=== PATIENT | male | born 1955 | race Caucasian/White ===

== ENCOUNTER → 2019-02-18 09:24 | Outpatient (CLI) | payer MEDICARE ==
[2019-02-19 11:00] LABS: HEP B CORE AB TOTAL Negative (Negative)
== END | disposition home or self-care (01) ==
LOC: D.LAB 01-18 09:15
PROVIDERS: ATTEND Internal Medicine Gastroenterology
DX: K63.3 Ulcer of intestine (principal); K92.2 Gastrointestinal hemorrhage, unspecified; R19.7 Diarrhea, unspecified; R10.11 Right upper quadrant pain; R10.32 Left lower quadrant pain

== ENCOUNTER → 2019-03-13 10:41 | Outpatient (CLI) | payer MEDICARE ==
[2019-03-14 12:13] LABS: HEPATITIS C ANTIBODY <0.1 S/CO RAT (0.0-0.9)
== END | disposition home or self-care (01) ==
LOC: D.LAB 10:41
PROVIDERS: ATTEND Internal Medicine Gastroenterology
DX: K63.89 Other specified diseases of intestine (principal); R10.32 Left lower quadrant pain; K63.3 Ulcer of intestine

== ENCOUNTER → 2019-03-27 07:46 | Outpatient (CLI) | payer MEDICARE ==
--- NOTE | ~2019-03-27 | ST ---
PATIENT:LACIE [place] MEDICAL RECORD: [id number] SEX: M LOCATION:[facility] ORDER #: ADMISSION DATE: 03/27/19 AGE OF PATIENT: 63 REFERRING PHYSICIAN: INTERPRETING PHYSICIAN: MATTEO CAMPOS MD DATE OF SERVICE: 03/27/2019 PROCEDURE: Nuclear stress test. INDICATIONS: Angina, abnormal ECG, dysrhythmia - atrial flutter. He was exercised on standard Lexiscan protocol with 33 mCi of sestamibi injected at peak stress, 11 mCi used previously for rest images. FINDINGS: Gated SPECT reveals a mildly dilated cardiomyopathy, ejection fraction in the 49% range. Decreased thickening and brightening throughout the inferior segments. SPECT imaging: Cardiolite was used as a myocardial perfusion agent. There was a mixed perfusion defect inferiorly and apically, partially fixed, partially reversible. This includes the basal, mid, apical, inferior segments as well as the apex itself, it as well extends into the basal and mid lateral segments. OVERALL IMPRESSION: This is an abnormal nuclear stress test, mixed fusion defect inferiorly and laterally as well as apically, partially fixed, partially reversible with a dilated LV ejection fraction mildly depressed, but preserved at 49%. This suggests hemodynamically significant coronary artery disease, previous myocardial infarction, ongoing ischemic burden, and a large amount of myocardium. We will proceed with coronary angiography as a followup study. TRANSINT:[id number] Voice Confirmation ID: [id number] DOCUMENT ID: [id number] MATTEO CAMPOS MD CC: REJI MARY Deep [id number] DICTATION DATE: 03/27/19 1612 OPTICIANRY TEACHER: 03/28/19 1014 DEP CLI 03/27/19 [place] [id number] [place] [id number]
--- NOTE | 2019-04-02 13:26 | EC ---
PATIENT:LACIE [place] DATE OF SERVICE: 03/27/19 SEX: M MEDICAL RECORD: [id number] DATE OF : [birth year] LOCATION:[facility] AGE OF PATIENT: 63 ADMISSION DATE: 03/27/19 REFERRING PHYSICIAN: INTERPRETING PHYSICIAN: AYO HOPE MD ECHOCARDIOGRAM REPORT ECHO CHARGES 4 ECHO COMPLETE Date: 03/27/19 CLINICAL DIAGNOSIS: ANGINA ECHOCARDIOGRAPHIC MEASUREMENTS (adult normal given) AC root (d.<3.7cm) 3.8 cm LV Septum d (<1.2 cm> 1.5 cm Valve Excursion 2.0 cm LV Septum (systole) 1.7 cm Left Atria (s.<4.0cm> 4.2 cm LVPW d(<1.2cm) 1.4 cm RV (d.<2.3cm) 5.0 cm LVPW (sytole) 1.8 cm LV diastole(<5.6CM) 5.7 cm MV E-F(>70mm/sec) cm LV systole 4.1 cm LVOT Diameter 2.0 cm MV exc.(>10mm) 1.8 cm Est.ejection fraction (50-75%) % DOPPLER: LVIT cm/sec A 48.0 cm/sec E 87.0 cm/sec LA cm/sec RVSP 32 mmHg LVOT 104 cm/sec AOP1/2T m/s Asc. Ao 142 cm/sec RVOT 86 cm/sec RA cm/sec PA 101 cm/sec AV Gradient Peak 8.08 mmHg AV Mean 4.48 mmHg AV Area 2.2 cm MV Gradient Peak 5.18 mmHg MV Mean 1.83 mmHg MV Area cm COMMENTS: Senior Hardware Engineer: 2 CARO HODGE Management Development Specialist: 3 Dr. Lao TAPE# PACS Pericardial Effusion N DATE OF SERVICE: Adequate 2-D echo, color-flow and spectral Doppler, and M-mode. LVH is present. LV internal dimensions are normal. Wall motion is normal. EF is greater than or equal to 55%. Aortic valve is tricuspid. No evidence of stenosis by Doppler interrogation. Left atrium mildly dilated at 4.2 cm. Mitral valve shows no prolapse. Trace MR. Right-sided chambers are grossly normal. Trace TR. ECHOCARDIOGRAM REPORT [id number] LACIE [place] TRANSINT:[id number] Voice Confirmation ID: [id number] DOCUMENT ID: [id number] AYO HOPE MD at 1326 CC: [id number] DICTATION DATE: 03/28/19 1304 TAX SERVICES MANAGER: 03/28/19 1424 DEP CLI 03/27/19 [facility] [address] [place] [address]
== END | disposition home or self-care (01) ==
LOC: D.HCCARDIO 07:46
PROVIDERS: ATTEND Internal Medicine Interventional Cardiology
DX: I20.9 Angina pectoris, unspecified (principal)

== ENCOUNTER 2019-04-18 11:09 | Outpatient (CLI) | payer MEDICARE ==
[~2019-04-18] VITALS: Ht 185.4 cm; Wt 109.1 kg
--- NOTE | ~2019-04-18 | HEMODYNAMI ---
PATIENT:LACIE [place] MEDICAL RECORD: [id number] : 51 LOCATION:[facility] ADMISSION DATE: 04/18/19 Generatedon:04/18/201914:41 Patient name: LACIE ROSAL[place] Patient #: [id number] SSN: : 1955 Date of study: 04/18/2019 Page: Of Hemodynamic Procedure Report Patient Data Patient Demographics Procedure consent was obtained First Name: LACIE Gender: Male Last Name: BOBBY : 1955 Patient #: [id number] Age: 63 year(s) Race: Unknown Additional ID: [id number] Contact details [address]: [address] [place] [address] State: [place] City: [place] Zip code: [address] Past Medical History Allergies: No known allergies Admission Admission Data Admission Date: 04/18/2019 Admission Time: 11:09 Height (in.): 73 BSA: 2.33 (m2) Height (cm.): 185.42 BMI: 31.7 (kg/m2) Weight (lbs.): 240.31 Weight (kg.): 109 Lab Results Lab Result Date: 04/18/2019 Lab Result Time: 0:00 Biochemistry Name Units Result Min Max BUN mg/dl 15 --(--*-)-- 7 18 Creatinine mg/dl 0.8 --(-*--)-- 0.6 1.3 CBC Name Units Result Min Max Hematocrit % 42.9 --(*---)-- 42 54 Hemoglobin g/dl 14.1 --(*---)-- 13.5 17.5 Procedure Procedure Types Cath Procedure Diagnostic Procedure C [facility] w/Coronaries Sedation Charges Moderate Sedation up to 15 minutes PCI Procedure Coronary Stent Coronary Stent Initial Procedure Description Procedure Date Procedure Date: 04/18/2019 Procedure Start Time: 14:05 Procedure End Time: 14:40 Procedure Staff Name Function Tj Carias MD Performing Physician Jose Pathak RT Scrub Nina Villagran RN Nurse Maya Perez RT Monitor Procedure Data Cath Procedure Fluoroscopy Diagnostic fluoroscopy Total fluoroscopy Time: 8.3 time: 8.3 min min Diagnostic fluoroscopy Total fluoroscopy dose: dose: 1744 mGy 1744 mGy Contrast Material Contrast Material Type Amount (ml) Isovue 300 154 Entry Location Entry Primary Successful Side Size Upsize Upsize Entry Closure Succes sful Closure Location (Fr) 1 (Fr) 2 (Fr) Remarks Device Remarks Radial Right 6 Fr artery Short Femoral Right 6 Fr Exoseal artery Short Estimated blood loss: 10 ml Diagnostic catheters Device Type Used For End Catheter Placement DIAGNOSTIC [place] 110cm 5 Procedure Fr catheter ([id number]) DIAGNOSTIC AR MOD 5Fr Procedure Catheter ([id number]) DIAGNOSTIC AR MOD 5Fr Procedure Catheter ([id number]) Procedure Complications No complications Procedure Medications Medication Administration Route Dosage 0.9% NaCl I.V. 100 ml/hr Oxygen etCO2 Nasal cannula 2 l/min Lidocaine 2% added to field 20 Heparin Flush Bag added to field 2 bags (1000units/500ml NS) Radial Cocktail added to field 1 syringe (Verapamil 2mg/Nitro 400mcg/Heparin 1500units) Versed I.V. 2 mg Fentanyl I.V. 50 mcg Fentanyl I.V. 50 mcg Heparin Bolus I.V. 5000 units Integrilin (Bolus I.V. 9.5 ml 2mg/ml) Plavix P.O. 600 mg Hemodynamics Rest BSA: 2.33 (m2) HGB: 14.1 (g/dl) O2 Consumption: Estimated: 258.57 (ml/min) O2 Co nsumption indexed: Estimated:110.97 (ml/min/m) Heart Rate: 55 (bpm) Pressure Samples Time Site Value (mmHg) Purpose Heart Use Rate(bpm) 14:10 LV 117/17,20 Snapshot 82 14:10 AO 145/58(79) Pullback 82 14:10 LV 125/17,21 Pullback 82 Gradients Valve Time Site 1 Site 2 Mean SEP/DFP Peak To Heart Use (mmHg) (sec/min) Peak Rate (mmHg) (bpm) Aortic 14:10 LV AO 0 82 125/17,21 145/58(79) Calculations Valve P-P Mean Valve Index Valve Source Name Gradient Area Flow (cm2) Aortic 0 0 Snapshots Pre Cath Intra NCS Post Cath Vital Signs Time Heart Resp SPO2 etCO2 NIBP (mmHg) Rhythm Pain Sedation Rate (ipm) (%) (mmHg) Status Level (bpm) 13:51:18 71 16 96 27.8 145/80(117) A-Flutter 0 (11) 10(A) , No pain 13:55:40 86 18 98 38.4 141/86(117) A-Flutter 0 (11) 10(A) , No pain 13:59:57 85 15 98 46.6 142/94(134) A-Flutter 0 (11) 10(A) , No pain 14:04:12 80 15 98 48.9 143/98(113) A-Flutter 0 (11) 10(A) , No pain 14:08:30 67 13 98 48.9 132/87(106) A-Flutter 0 (11) 9(A) , No pain 14:12:42 84 13 97 49.6 136/92(108) A-Flutter 0 (11) 9(A) , No pain 14:16:58 77 13 98 45.9 145/84(113) A-Flutter 0 (11) 9(A) , No pain 14:21:14 84 15 97 48.8 142/92(113) A-Flutter 0 (11) 9(A) , No pain 14:25:33 84 15 96 45.2 137/86(104) A-Flutter 0 (11) 9(A) , No pain 14:29:47 76 17 98 52.6 145/92(126) A-Flutter 0 (11) 10(A) , No pain 14:34:00 78 16 91 45.9 147/94(114) A-Flutter 0 (11) 10(A) , No pain 14:39:00 62 15 0 163/108(139) A-Flutter 0 (11) 10(A) , No pain Medications Time Medication Route Dose Verified Delivered Reason Not es Effectiveness by by 13:51:05 0.9% NaCl I.V. 100 Tj Wood used for ml/hr JvDerek Villagran procedure MD REAL 13:51:12 Oxygen etCO2 2 l/min Tj Wood used for Nasal St Derek Villagran procedure cannula MD REAL 13:51:17 Lidocaine 2% added 20ml Tj Spencer for local to vial [facility] anesthetic field MD WATKINS 13:51:22 Heparin Flush added 2 bags Tj Spencer used for Bag to [facility] procedure (1000units/500ml field MD WATKINS NS) 13:51:47 Radial Cocktail added 1 Tj Spencer used for (Verapamil to syringe [facility] procedure 2mg/Nitro field MD WATKINS 400mcg/Heparin 1500units) 14:01:56 Versed I.V. 2 mg Tj Suareza for sedation St Derek Villagran MD RN 14:02:02 Fentanyl I.V. 50 mcg Tj Nina for sedation St Derek Villagran MD RN 14:06:06 Fentanyl I.V. 50 mcg Tj Nina for sedation St Derek Villagran MD RN 14:23:26 Heparin Bolus I.V. 5000 Tj Nina for agustin ified units [facility] anticoagulation with Dr. WATKINS RN [place] 14:23:38 Integrilin I.V. 9.5 ml Tj Quanyla for was matias (Bolus 2mg/ml) JvDerek Villagran antiplatelet 1.5mL RN therapy 14:23:55 Plavix P.O. 600 mg Tj Quanyla for [place] Tyshawn antiplatelet RN therapy Procedure Log Time Note 13:38:26 Signed procedure consent form obtained from patient. 13:38:27 Diagnostic Cath status Elective 13:38:28 Time tracking: Regular hours (M-F 7:00 - 5:00) 13:38:31 Plan of Care:Hemodynamics will remain stable., Cardiac rhythm will remain stable., Comfort level will be maintained., Respiratory function will remain adequate., Patient/ family verbilizes understanding of procedure., Procedure tolerated without complication., Recovers from procedure without complications.. 13:38:34 Nina Villagran RN sent for patient. Start room use. 13:41:13 Patient allergic to No known allergies 13:41:47 H&P Date Dictated: 04/18/2019 New H&P dictated by physician.. 13:41:51 Lab Result : BUN 15 mg/dl 13:41:51 Lab Result : Creatinine 0.8 mg/dl 13:41:51 Lab Result : Hemoglobin 14.1 g/dl 13:41:51 Lab Result : Hematocrit 42.9 % 13:42:03 Patient Weight : 240.31 lbs 13:42:43 Patient Height : 73 inches 13:43:09 Patient received from Pre/Post Procedure Room to CCL 2 Alert and oriented. Tansferred to table in Supine position. 13:43:11 Warm blankets applied, and katharine hugger turned on for patient comfort. 13:43:11 Correct patient and procedure confirmed by team. 13:43:12 ECG and BP/O2 sat monitors applied to patient. 13:49:52 Vital chart was started 13:51:05 0.9% NaCl 100 ml/hr I.V. was administered by Nina Villagran RN; used for procedure; 13:51:12 Oxygen 2 l/min etCO2 Nasal cannula was administered by Nina Villagran RN; used for procedure; 13:51:17 Lidocaine 2% 20ml vial added to field was administered by Tj Carias MD; for local anesthetic; 13:51:22 Heparin Flush Bag (1000units/500ml NS) 2 bags added to field was administered by Tj Carias MD; used for procedure; 13:51:47 Radial Cocktail (Verapamil 2mg/Nitro 400mcg/Heparin 1500units) 1 syringe added to field was administered by Tj Carias MD; used for procedure; 13:52:40 Baseline sample Acquired. 13:52:44 Rhythm: atrial flutter 13:52:44 Full Disclosure recording started 13:52:46 Pre-procedure instructions explained to patient. 13:52:46 Pre-op teaching completed and patient verbalized understanding. 13:52:48 Family in patients room. 13:52:50 Patient NPO since Midnight. 13:52:54 Is patient on blood thinner?No 13:52:56 Patient diabetic? No. 13:52:58 Is the patient allergic to Iodine/contrast media? No. 13:53:02 Previous problem with sedation/anesthesia? No ? 13:53:02 Snore? Yes 13:53:03 Sleep apnea? No 13:53:05 Deviated septum? No 13:53:05 Opens mouth fully? Yes 13:53:07 Sticks out tongue? Yes 13:53:08 Airway obstruction? No ? 13:53:10 Dentures? No ? 13:53:12 Modified Dashawn's test Ulnar < 7 seconds 13:53:14 Patient pain scale 0/10 ?. 13:53:16 IV patent on arrival in left hand with 0.9% NaCl at KVO. 13:53:18 Lab results completed and on chart. 13:53:22 Right groin area was prepped with chlora-prep and draped in sterile fashion 13:53:27 Alarms reviewed by R. N. 13:53:27 Sharps counted by scrub and verified by R.N. 13:53:31 Use device set Radial Dx or PCI 13:53:32 ACIST Syringe (21506) opened to sterile field. 13:53:33 Bag Decanter (2002S) opened to sterile field. 13:53:34 ACIST Manifold (58961) opened to sterile field. 13:53:35 ACIST Hand Control (08560) opened to sterile field. 13:53:35 Tegaderm 4 x 4 (1626W) opened to sterile field. 13:53:36 Medline Cath Pack ([id number]) opened to sterile field. 13:53:36 DIAGNOSTIC WIRE .035 260cm J wire (410887) opened to sterile field. 13:53:37 MBrace Wrist Support ([id number]) opened to sterile field. 13:53:38 SHEATH 6FR Slender (39-1060) opened to sterile field. 14:01:09 --------ALL STOP TIME OUT------ 14:01:09 Final Timeout: patient, procedure, and site verified with staff and physician. All members of the team are in agreement. 14:01:11 Right Radial & Right Groin site verified by team. 14:01:18 Maximum allowable Isovue 300 dose 300ml. Physician notified. (300ml for normal creatinines. For patients with creatinine of 1.7 or higher multiply weight(kg) x 5 divided by creatinine.) 14:01:21 Fire Safety Assessment: A--An alcohol-based skin anteseptic being used preoperatively., C--Open oxygen or nitrous oxide is being used., D--An ESU, laser, or fiber-optic light is being used. 14:01:24 Physical assessment completed. ASA score P 2 - A patient with mild systemic disease as per Tj Carias MD. 14:01:27 Sedation plan: IV Moderate Sedation Medication:Versed, Fentanyl 14:01:56 Versed 2 mg I.V. was administered by Nina Villagran RN; for sedation; 14:02:02 Fentanyl 50 mcg I.V. was administered by Nina Villagran RN; for sedation; 14:05:40 Procedure started. 14:05:41 Zero performed for pressure channel P1 14:05:47 Local anesthetic to right radial artery with Lidocaine 2% by Tj Carias MD.INITIAL ACCESS ONLY 14:05:56 A 6 Fr Short sheath was inserted into the Right Radial artery 14:06:06 Fentanyl 50 mcg I.V. was administered by Nina Villagran RN; for sedation; 14:06:13 Zero performed for pressure channel P1 14:07:09 A DIAGNOSTIC [place] 110cm 5 Fr catheter (521865) was advanced over the wire and used for Procedure. 14:08:46 GLIDE WIRE ADVANTAGE 260cm (HK9189) opened to sterile field. 14:09:01 GLIDE WIRE USED TO ADVANCE CATHETER 14:09:59 LV gram done using NAIR 14:10:01 Injector settings: Ml/sec: 7, Volume: 15, 14:10:26 LV hemodynamics recorded. 14:10:37 EF : 50 % 14:12:39 Catheter exchanged over wire. 14:13:18 UNABLE TO ENGAGE LCA 14:14:32 A DIAGNOSTIC AR MOD 5Fr Catheter (149904W) was advanced over the wire and used for Procedure. 14:15:04 UNABLE TO ENGAGE CATHETER REMOVED 14:15:16 PROCEED TO GROIN 14:15:26 SHEATH 6FR [place] (ORX126) opened to sterile field. 14:16:14 Local anesthetic to right femoral artery with Lidocaine 2% by Tj Carias MD.ADDITIONAL ACCESS 14:16:48 A 6 Fr Short sheath was inserted into the Right Femoral artery 14:17:25 GUIDE 6FR XBLAD 3.5 catheter (08427732) opened to sterile field. 14:18:09 A DIAGNOSTIC AR MOD 5Fr Catheter (638969J) was advanced over the wire and used for Procedure. 14:18:14 RCA angiography performed. 14:18:21 Catheter exchanged over wire. 14:18:41 6 Fr XBLAD 3.5 guide catheter was inserted over the wire 14:19:42 LCA angiography performed. 14:20:39 WHISPER 300cm guide wire (8579047KG) opened to sterile field. 14:20:44 INFLATOR Merit BasixCompak (NZ3099) opened to sterile field. 14:23:26 Heparin Bolus 5000 units I.V. was administered by Nina Villagran RN; for anticoagulation; verified with Dr. Lao 14:23:38 Integrilin (Bolus 2mg/ml) 9.5 ml I.V. was administered by Nina Villagran RN; for antiplatelet therapy; wasted 1.5mL 14:23:45 WHISPER 300 wire advanced. 14:23:47 Wire advanced across lesion. 14:23:55 Plavix 600 mg P.O. was administered by Nina Villagran RN; for antiplatelet therapy; 14:27:44 Place stent Inflation Number: 1 A HALLEY OTW 3.5 x 26 stent ([id number]) was prepped and advanced across the Mid CX 80. The stent was deployed at 14 OLGA for 0:15 (min:sec) 0. 14:28:15 Stent catheter was removed intact over wire. 14:28:16 Wire removed. 14:28:16 Guide catheter removed. 14:28:24 EXOSEAL 6Fr (EX600) opened to sterile field. 14:28:26 TR BAND Large (CPX62USB) opened to sterile field. 14:28:41 Sheath removed intact; hemostasis achieved with Exoseal to the Right Femoral artery. 14::44 Procedure ended.(Physican Out) 14:30:08 Fluoroscopy time 08.30 minutes. 14:30:12 Fluoroscopy dose: 1744 mGy 14:30:12 Flurop Dose total: 1744 14:30:16 Contrast amount:Isovue 300 154ml. 14:30:17 Sharps counted by scrub and verified by R.N. 14:30:22 Post-op/insertion site Right Femoral artery dressed using a 4 x 4 and Tegaderm. 14:30:28 Post-procedure physical assessment completed. ASA score P 2 - A patient with mild systemic disease as per Tj Carias MD. 14:30:33 Post procedure rhythm: atrial flutter 14:30:35 Estimated blood loss: 10 ml 14:30:36 Post procedure instruction explained to patient.Patient verbalizes understanding. 14:30:36 Patient needs reinforcement of post procedure teaching. 14:31:12 Procedure type changed to Cath procedure, Diagnostic procedure, LHC, LHC w/Coronaries, Sedation Charges, Moderate Sedation up to 15 minutes, PCI procedure, Coronary Stent, Coronary Stent Initial 14:39:17 ALYCIA Zamora (G14460) opened to sterile field. 14:40:35 Procedure and supply charges have been captured, reviewed, submitted and are correct. 14:40:37 Procedure Complication : No complications 14:40:39 Vital chart was stopped 14:40:39 See physician's report for complete and final results. 14:40:40 Report given to Pre/Post Procedure Room. 14:40:43 Patient transfered to Pre/Post Procedure Room with Bed. 14:40:45 Procedure ended. 14:40:45 Full Disclosure recording stopped 14:40:49 End room use (Document Last) Intervention Summary Intervention Notes Time ActionType Lesion and Equipment Action# Pressure Duration Attributes Used 14:27:44 Place stent Mid CX HALLEY OTW 3.5 1 14 00:15 x 26 stent ([id number]) Device Usage Item Name Manufacture Quantity Catalog Hospital Part Current Mini mal Lot# / Number Charge Number Stock Stock Serial# Code ACIST Syringe Acist 1 57132 372566 884513 145336 20 (72477) Medical Systems Inc Bag Decanter Microtek 1 2002S 738305 72084 945707 5 (2002S) Medical Inc. ACIST Acist 1 02915 198421 171225 371750 5 Manifold Medical (66020) Systems Inc ACIST Hand Acist 1 16409 913151 055771 446954 5 Control Medical (19378) Systems Inc Tegaderm 4 x 3M 1 1626W 166330 079565 104993 5 4 (1626W) Medline Cath Medline 1 [id number] 919654 03302 229567 5 Pack ([id number]) DIAGNOSTIC St Yusuf 1 307496 819614 941264 655759 30 WIRE .035 260cm J wire (296955) MBrace Wrist Advanced 1 140-0250-00 787454 44791 262489 5 Support Vascular (184503713) Dynamics SHEATH 6FR Terumo 1 [id number] 441078 678357 781003 5 Slender (80-1060) DIAGNOSTIC Terumo 1 40-5013 210598 403817 301318 5 [place] 110cm 5 Fr catheter (088737) GLIDE WIRE Terumo 1 HJ5345 329062 150402 5 ADVANTAGE 260cm (MS5481) DIAGNOSTIC AR Cardinal 1 388759W 025741 218567 187546 15 MOD 5Fr Health Catheter (941368L) SHEATH 6FR Terumo 1 BRQ735 054774 195178 686745 40 [place] (FDE335) GUIDE 6FR Cardinal 1 71186391 063117 299450 498157 10 XBLAD 3.5 Health catheter (47695788) WHISPER 300cm Pink 1 [id number] 088795 361581 591367 5 guide wire Vascular (1853333GT) INFLATOR Merit 1 BL9119 604386 818276 313713 15 [facility] Medical BasixCompak (GX4734) HALLEY OTW 3.5 Medtronic 1 [id number] 326204 5846423 458197 5 [id number] x 26 stent ([id number]) EXOSEAL 6Fr Cardinal 1 EX600 043400 322849 796918 10 (EX600) Health TR BAND Large Terumo 1 [id number] 658822 794538 889207 40 ([id number]) FEMSTOP Gold St Yusuf 1 Z32960 010058 472357 957041 5 (R94154) Signature Audit [place] Time Signature Unsigned Intra-Procedure 04/18/2019 Myaa Perez 2:41:14 PM RT(R) Signatures Monitor : Maya Perez Signature : RT Date : Time : [facility] [address] [place] [address]
[2019-04-18] MEDS ORDERED: NICOTINE PATCH TD (11:45)
[2019-04-18] MEDS ORDERED: MULTI-DAY VITAM1 TAB PO (11:46)
[2019-04-18 12:00] VITALS: BP 147/82; Ht 185.4 cm; Wt 109.1 kg
[2019-04-18 12:16] LABS: BASOPHILS 0.4 % (0-2); EOSINOPHILS 1.8 % (0-7); HEMATOCRIT 42.9 % (42.0-54.0); HEMOGLOBIN 14.1 g/dL (13.5-17.5); IMMATURE GRANULOCYTES 1.2 % (0-5); LYMPHOCYTES 10.7 % (15-50); MCH 26.6 pg (26.0-34.0); MCHC 32.9 g/dL (31.0-37.0); MCV 80.9 fL (80.0-100.0); MEAN PLATELET VOLUME 9.7 fL (7.4-10.4); MONOCYTES 9.3 % (2-11); NEUTROPHILS 76.6 % (40-80); PLATELET COUNT 249 10x3/uL (130-400); RDW 17.1 % (11.5-14.5); WBC 9.5 10x3/uL (4.8-10.8)
[2019-04-18 12:17] LABS: CALC OSMOLALITY 279 mosm/kg (275-300); CALCIUM 8.9 mg/dL (8.5-10.1); CARBON DIOXIDE 28.9 mmol/L (21.0-32.0); CHLORIDE - SERUM 104 mmol/L (98-107); CREATININE - SERUM 0.8 mg/dL (0.6-1.3); GLUCOSE 117 mg/dL (74-106); POTASSIUM - SERUM 4.9 mmol/L (3.5-5.1); SODIUM 139 mmol/L (136-145); UREA NITROGEN 15 mg/dL (7-18); eGFR NON AFRICAN AMERICAN > 90 mL/min (90-120)
--- NOTE | 2019-04-18 14:30 | NUR ---
RECIEVED TO ROOM VIA STRETCHER FROM MACHINE CONTAINER WASHER WITH TR BAND TO R/WRIST AND FEMSTOP TO R/GROIN PRESSURE AT 178. PATIENT CONNECTED TO MONITOR FOR OBSERVATION WITH HR [address] HOPE AWARE
--- NOTE | 2019-04-18 14:45 | NUR ---
RESTING QUIETLY WITH NO DISTRESS. TR BAND IS CDI AND FEMSTOP REAMINS CDI INSTRUCTED PATIENT TO KEEP HEAD ON PILLOW WITH RLE STRAIGHT
[2019-04-18] MEDS ORDERED: BAYER CHEWABLE81 MG PO (14:51)
[2019-04-18] MEDS ORDERED: PLAVIX75 MG PO (14:51)
--- NOTE | 2019-04-18 15:06 | NUR ---
PATIENT RESPONDS TO VERBAL WITH CHEST PAIN DENIED. FEMSTOP REMAINS CDI
--- NOTE | 2019-04-18 15:24 | NUR ---
PATIENT COMPLAINS OF BACK PAIN AND PAIN TO [facility] SITE DR HOPE NOTIFED WITH NEW ORDERS RECIEVED. NORCO 5/325 GIVEN ORAL
--- NOTE | 2019-04-18 16:06 | NUR ---
PATIENT RESTING QUIETLY WITH EYES CLOSED. RESPIRATIONS UNLABORED. VSS FEMSTOP REAMINS IN PLACE AND TR BAND TO R/WRIST IS CDI
--- NOTE | 2019-04-18 16:13 | NUR ---
2 CC AIR REMOVED FROM TR BAND WITH NO BLEEDING. PRESSURE TO FEMSTOP LOWERED TO 130
--- NOTE | 2019-04-18 16:22 | NUR ---
3 CC AIR REMOVED FROM TR BAND WITH NO BLEEDING. PRESSURE TO FEMSTOP DOWN TO 90
--- NOTE | 2019-04-18 16:36 | NUR ---
3 CC AIR REMOVED FROM TR BAND WITH NO BLEEDING PRESSURE TO FEMSTOP RELEASED WITH BELT STILL IN PLACE NO BLEEDING OR HEMATOMA
--- NOTE | 2019-04-18 17:00 | NUR ---
FEMSTOP REMOVED FROM BELT. NO BLEEDING/HEMATOMA NOTED TO RIGHT GROIN. DRESSING APPLIED. RIGHT PEDAL PULSE PALPABLE. RIGHT WRIST TR BAND IN PLACE. NO BLEEDING/HEMATOMA NOTED.
--- NOTE | 2019-04-18 17:30 | NUR ---
RIGHT GROIN DRESSING C/D/I. NO S/S OF HEMATOMA NOTED. PT'S HEAD OF BED INC TO 30 DEGREES. TOLERATED WELL. SET UP WITH SANDWICH TRAY AND DRINK.
--- NOTE | 2019-04-18 17:54 | NUR ---
LEFT FA PIV D/C'D WITH CATH TIP INTACT. PT TOLERATED WELL. RIGHT GROIN DRESSING C/D/I. NO S/S OF HEMATOMA NOTED. RIGHT WRIST DRESSING C/D/I. NO S/S OF HEMATOMA NOTED. PT AMBULATED TO RESTROOM. VOIDED WITHOUT DIFFICULTY.
--- NOTE | 2019-04-18 18:00 | NUR ---
TR BAND REMOVED. NO BLEEDING/HEMATOMA NOTED. DRESSING APPLIED. RIGHT WRIST BRACE ON AND PT INSTRUCTED TO KEEP ON FOR 2 HOURS AFTER ARRIVAL HOME. DISCUSSED DISCHARGE INSTRUCTIONS WITH PT. HE VOICED UNDERSTANDING.
--- NOTE | 2019-04-18 18:20 | NUR ---
RIGHT WRIST AND RIGHT GROIN DRESSINGS C/D/I. NO S/S OF HEMATOMA NOTED. PT HAS ALL BELONGINGS AND PAPERWORK IN HAND. PT TAKEN OUT TO CAB. NO S/S OF DISTRESS NOTED.
--- NOTE | 2019-04-22 15:03 | OP ---
PATIENT NAME: LACIE ROSALES MEDICAL RECORD: [id number] :51 LOCATION:D.CAT ADMISSION DATE: SURGEON: AYO HOPE MD DATE OF OPERATION: 04/18/2019 PROCEDURE: Left heart catheterization, selective coronary angiography, right radial and femoral artery approach. CATHETERS: A 5-Moroccan sheath, radial sheath, and 6-Moroccan sheath. The procedure was tolerated. The patient was returned to the zapata. Sheath was removed. ExoSeal and TR band were placed femorally and radially respectively. FINDINGS: Left ventriculography in 30-degree NAIR view: Normal wall motion and normal systolic function. CORONARY ANATOMY: LEFT MAIN: Left main is free of disease. LAD: It has luminal irregularities, but no flow obstructive disease. CIRCUMFLEX: It has 2 sequential stenoses after takeoff of the OM1, about 80%. RIGHT CORONARY ARTERY: Codominant system. No significant stenosis. PLAN: Intervention to the circumflex momentarily. DESCRIPTION OF PROCEDURE: A 6-Moroccan sheath was placed in the right femoral artery. XB LAD guiding catheter provided good guide catheter support followed by 300 cm Whisper wire placed across both lesions down this portion of the circumflex. Stent deployed was a 3.5 x 26-mm Samuel drug eluting stent up to 14 atmospheres for 45 seconds. Final angiography revealed excellent resolution of two sequential 80% stenoses with no significant residual. RENALDO flow was 3 throughout the procedure. Sheath was closed with ExoSeal device. We had changed to legs due to inability to provide guide catheter support from the radial. TRANSINT:[id number] Voice Confirmation ID: [id number] DOCUMENT ID: [id number] AYO HOPE MD at 1503 CC: [id number] DICTATION DATE: 04/18/19 1440 ELECTRICAL HARDWARE ENGINEER: 04/18/19 1556 DEP CLI 04/18/19 [place] [id number] [place] [id number]
--- NOTE | 2019-04-22 15:03 | HP ---
PATIENT: LACIE ROSALES MEDICAL RECORD: [id number] ACCOUNT: [id number] LOCATION:HAWK : 51 ADMISSION DATE: 04/18/19 PCP: REJI MARY HISTORY AND PHYSICAL EXAMINATION HISTORY OF PRESENT ILLNESS: A 63-year-old gentleman with a history of atrial flutter as well as exertional angina, long-term smoking history, seen in the office for his arrhythmias and angina. He underwent Cardiolite stress testing, showed reversible ischemia, is being brought to the lab for angiography, possible intervention dictated via anatomy. PAST MEDICAL HISTORY: Includes; 1. History of atrial flutter. 2. Angina. 3. Normal ECG. PHYSICAL EXAMINATION: GENERAL: Pleasant female in no acute distress, appears stated age. HEENT: Normocephalic, atraumatic. NECK: No JVD or bruit. HEART: Regular. LUNGS: Fair air excursion, few expiratory wheezes. ABDOMEN: Soft, nontender. EXTREMITIES: Pulse 2+. No edema. PLAN: For angiography, intervention based on above. TRANSINT:[id number] Voice Confirmation ID: [id number] DOCUMENT ID: [id number] AYO HOPE MD at 1503 CC: [id number] DICTATION DATE: 04/18/19 1302 FACILITATOR: 04/18/19 1332 DEP CLI 04/18/19 [facility] [address] [place] [address]
== END 2019-04-18 18:20 | disposition home or self-care (01) ==
LOC: D.CATH 11:09
PROVIDERS: ATTEND Internal Medicine Interventional Cardiology
DX: I25.110 Atherosclerotic heart disease of native coronary artery with unstable angina pectoris (principal); R94.30 Abnormal result of cardiovascular function study, unspecified
CPT/HCPCS: C9600; 93458

== ENCOUNTER → 2019-04-23 09:55 | Outpatient (CLI) | payer MEDICARE ==
[2019-04-18 12:00] VITALS: BMI 31.7
[~2019-04-23 09:55] MED LIST: BAYER CHEWABLE81 MG PO; MULTI-DAY VITAM1 TAB PO; NICOTINE PATCH TD; PLAVIX75 MG PO
[2019-04-23 10:40] LABS: ALBUMIN 3.7 g/dL (3.4-5.0); ALKALINE PHOSPHATASE 73 U/L (46-116); ALT (SGPT) 24 U/L (10-68); BILIRUBIN - TOTAL 0.58 mg/dL (0.2-1.3); CALC OSMOLALITY 289 mosm/kg (275-300); CALCIUM 9.1 mg/dL (8.5-10.1); CARBON DIOXIDE 30.3 mmol/L (21.0-32.0); CHLORIDE - SERUM 104 mmol/L (98-107); CREATININE - SERUM 0.9 mg/dL (0.6-1.3); POTASSIUM - SERUM 4.2 mmol/L (3.5-5.1); PROTEIN - SERUM 7.1 g/dL (6.4-8.2); SODIUM 142 mmol/L (136-145); UREA NITROGEN 14 mg/dL (7-18); eGFR NON AFRICAN AMERICAN 90 mL/min (90-120)
[2019-04-23 10:42] LABS: GLUCOSE 211 mg/dL (74-106)
[2019-04-23 11:48] LABS: ERYTHROCYTE SEDIMENTATION RATE 6 mm/hr (0-20)
[2019-04-23 11:52] LABS: BASOPHILS 0.5 % (0-2); EOSINOPHILS 1.4 % (0-7); HEMATOCRIT 42.2 % (42.0-54.0); HEMOGLOBIN 13.7 g/dL (13.5-17.5); IMMATURE GRANULOCYTES 1.8 % (0-5); MCH 26.3 pg (26.0-34.0); MCHC 32.5 g/dL (31.0-37.0); MCV 81.2 fL (80.0-100.0); MONOCYTES 7.7 % (2-11); NEUTROPHILS 78.6 % (40-80); PLATELET COUNT 278 10x3/uL (130-400); WBC 10.4 10x3/uL (4.8-10.8)
== END | disposition home or self-care (01) ==
LOC: D.LAB 09:55
PROVIDERS: ATTEND Internal Medicine Gastroenterology
DX: K63.89 Other specified diseases of intestine (principal)

== ENCOUNTER → 2019-05-07 11:39 | Outpatient (CLI) | payer MEDICARE ==
[2019-04-18 12:00] VITALS: BMI 31.7
== END | disposition home or self-care (01) ==
LOC: D.US 11:30
PROVIDERS: ATTEND Nurse Practitioner Adult Health
DX: R60.9 Edema, unspecified (principal); M79.605 Pain in left leg

== ENCOUNTER 2019-05-28 11:07 | Outpatient (CLI) | payer MEDICARE ==
[~2019-05-28] VITALS: Ht 185.4 cm; Wt 118.2 kg
--- NOTE | ~2019-05-28 | HEMODYNAMI ---
PATIENT:LACIE ROSALES MEDICAL RECORD: [id number] : 51 LOCATION:DROSAURA ADMISSION DATE: 05/28/19 Generatedon:05/28/201914:06 Patient name: LACIE ROSALES Patient #: [id number] SSN: : 1955 Date of study: 05/28/2019 Page: Of Hemodynamic Procedure Report Patient Data Patient Demographics Procedure consent was obtained First Name: LACIE Gender: Male Last Name: BOBBY : 1955 Patient #: [id number] Age: 63 year(s) Race: Additional ID: [id number] Contact details Address: [address] [place] [address] State: [place] City: [place] Zip code: [address] Past Medical History Allergies Allergen Reaction Date Comments Reported Other allergy 05/28/2019 Admission Admission Data Admission Date: 05/28/2019 Admission Time: 11:07 Procedure Procedure Types Cath Procedure Diagnostic Procedure Cardioversion External NITHYA Procedure Description Procedure Date Procedure Date: 05/28/2019 Procedure Start Time: 13:51 Procedure End Time: 14:05 Procedure Staff Name Function Tj Carias MD Performing Physician Pete Wheatley CONCRETE PAVER Additional personnel Ilir Sykes RT Monitor Nina Villagran RN Nurse Moris Santiago Neonatal Intensive Care Unit Nurse Karma Norton Neonatal Intensive Care Unit Nurse Procedure Medications Medication Administration Route Dosage 0.9% NaCl I.V. 100 ml/hr Oxygen etCO2 Nasal cannula 3 l/min Hurricaine [place] P.O. 2 Sprays Refer to Anesthesia Notes for Sedation Medications Hemodynamics Rest Heart Rate: 55 (bpm) Snapshots Pre Cath Intra NCS Post Cath Vital Signs Time Heart Resp SPO2 etCO2 NIBP (mmHg) Rhythm Pain Sedation Rate (ipm) (%) (mmHg) Status Level (bpm) 13:49:34 53 21 99 33.1 Measuring A-Flutter 0 (11) 10(A) , No pain 13:50:58 49 15 98 24 Time A-Flutter 0 (11) 10(A) Exceeded , No pain 13:54:39 66 27 98 25 181/107(149) A-Flutter 0 (11) 5(A) , No pain 13:57:05 85 19 98 24.8 Out of range A-Flutter 0 (11) 5(A) , No pain 13:59:03 81 21 97 35.3 154/91(120) A-Flutter 0 (11) 5(A) , No pain 14:01:43 83 26 98 40.8 142/87(109) A-Flutter 0 (11) 10(A) , No pain 14:05:45 82 16 97 36.7 133/83(104) A-Flutter 0 (11) 10(A) , No pain Medications Time Medication Route Dose Verified Delivered Reason Notes Effectiv eness by by 13:48:25 0.9% NaCl I.V. 100 Tj Wood used for ml/hr St Derek Villagran procedure MD REAL 13:48:32 Oxygen etCO2 3 Tj Wood used for Nasal l/min St Derek Villagran procedure cannula MD REAL 13:48:43 Hurricaine P.O. 2 Tj Wood used for [place] Sprays JvDerek Villagran procedure MD REAL 13:48:54 Refer to Tj Freeman used for Anesthesia Jv Corry procedure Notes for MD SAUL Sedation Medications Procedure Log Time Note 13:39:16 Informed consent obtained and on chart 13:39:38 Diagnostic Cath Status : Elective 13:42:32 Time tracking: Regular hours (M-F 7:00 - 5:00) 13:42:39 Plan of Care:Hemodynamics will remain stable., Cardiac rhythm will remain stable., Comfort level will be maintained., Respiratory function will remain adequate., Patient/ family verbilizes understanding of procedure., Procedure tolerated without complication., Recovers from procedure without complications.. 13:45:22 NITHYA started. 13:47:37 Patient received from Pre/Post Procedure Room to [facility] 3 Alert and oriented. Tansferred to table in Supine position. 13:47:40 Warm blankets applied, and katharine hugger turned on for patient comfort. 13:47:44 ECG and BP/O2 sat monitors applied to patient. 13:47:46 Vital chart was started 13:48:13 Baseline sample Acquired. 13:48:18 Rhythm: atrial fibrillation 13:48:23 Full Disclosure recording started 13:48:25 0.9% NaCl 100 ml/hr I.V. was administered by Nina Villagran RN; used for procedure; 13:48:31 Pre-procedure instructions explained to patient. 13:48:31 Pre-op teaching completed and patient verbalized understanding. 13:48:32 Oxygen 3 l/min etCO2 Nasal cannula was administered by Nina Villagran RN; used for procedure; 13:48:32 Family in waiting room. 13:48:35 Patient NPO since Midnight. 13:48:43 Hurricaine [place] 2 Sprays P.O. was administered by Nina Villagran RN; used for procedure; 13:48:54 Refer to Anesthesia Notes for Sedation Medications was administered by Pete Wheatley CRNA; used for procedure; 13:48:57 Patient allergic to Other allergy 13:49:05 Previous problem with sedation/anesthesia? No ? 13:49:07 Snore? Yes 13:49:08 Sleep apnea? Yes 13:49:11 Deviated septum? No 13:49:12 Opens mouth fully? Yes 13:49:13 Sticks out tongue? Yes 13:49:17 Airway obstruction? No ? 13:49:28 IV patent on arrival in left hand with 0.9% NaCl at [facility]. 13:49:39 Alarms reviewed by Franchesca Rosenthal 13:49:50 Pete Wheatley CRNA present and monitoring patient for TIVA. 13:51:24 Quick combo pads placed on patients chest and back. 13:53:36 Physician arrived 13:53:36 --------ALL STOP TIME OUT------ 13:53:37 Final Timeout: patient, procedure, and site verified with staff and physician. All members of the team are in agreement. 13:53:50 Fire Safety Assessment: C--Open oxygen or nitrous oxide is being used. 13:53:57 Physical assessment completed. ASA score P 3 - A patient with severe systemic disease as per Tj Carias MD. 13:54:05 Sedation plan: TIVA Medication:Propofol 13:55:47 NITHYA started. 13:56:16 Procedure type changed to Cath procedure, Diagnostic procedure, Cardioversion External, NITHYA 13:56:40 Defibrillator synced and charged to 200 Joules. 13:56:42 Shock delivered. 13:57:23 Patient cardioverted to sinus rhythm . 13:58:10 Procedure ended.(Physican Out) 14:02:17 Quick Combo opened to sterile field. 14:05:06 Procedure and supply charges have been captured, reviewed, submitted and are correct. 14:05:09 Vital chart was stopped 14:05:12 Procedure ended. 14:05:12 Full Disclosure recording stopped 14:05:16 End room use (Document Last) Device Usage Item Manufacture Quantity Catalog Hospital Part Current Minimal Lot# / Name Number Charge Number Jaycee Mckoy al# Code [employer] 1 [id number] Combo Signature Audit [place] Stage Time Signature Unsigned Intra-Procedure 05/28/2019 Ilir Sykes 2:06:16 PM RT(R) (CV) Signatures Performing Physician : Signature : Tj Carias MD Date : Time : Monitor : Ilir Sykes RT Signature : Date : Time : Nurse : Nina Villagran RN Signature : Date : Time : [address] [place] [address]
[2019-05-28] MEDS ORDERED: BETAPACE 80 MG80 MG PO (11:14)
[2019-05-28] MEDS ORDERED: FUROSEMIDE40 MG PO (11:14)
[2019-05-28] MEDS ORDERED: XARELTO15 MG PO (11:15)
[2019-05-28 11:32] VITALS: BP 143/73; Ht 185.4 cm; Wt 118.2 kg
[2019-05-28 11:39] LABS: BASOPHILS 0.4 % (0-2); EOSINOPHILS 2.7 % (0-7); HEMATOCRIT 44.9 % (42.0-54.0); HEMOGLOBIN 15.2 g/dL (13.5-17.5); IMMATURE GRANULOCYTES 0.7 % (0-5); LYMPHOCYTES 11.7 % (15-50); MCH 27.3 pg (26.0-34.0); MCHC 33.9 g/dL (31.0-37.0); MCV 80.6 fL (80.0-100.0); MEAN PLATELET VOLUME 9.5 fL (7.4-10.4); MONOCYTES 8.1 % (2-11); NEUTROPHILS 76.4 % (40-80); PLATELET COUNT 302 10x3/uL (130-400); RBC 5.57 10x6/uL (4.20-6.10); RDW 14.7 % (11.5-14.5); WBC 9.9 10x3/uL (4.8-10.8)
[2019-05-28 11:49] LABS: INR 1.45 (0.85-1.17); PROTIME 17.1 SECONDS (11.6-15.0)
[2019-05-28 11:53] LABS: CALC OSMOLALITY 285 mosm/kg (275-300); CALCIUM 8.9 mg/dL (8.5-10.1); CARBON DIOXIDE 27.9 mmol/L (21.0-32.0); CHLORIDE - SERUM 103 mmol/L (98-107); CREATININE - SERUM 0.9 mg/dL (0.6-1.3); POTASSIUM - SERUM 4.4 mmol/L (3.5-5.1); SODIUM 141 mmol/L (136-145); UREA NITROGEN 20 mg/dL (7-18); eGFR NON AFRICAN AMERICAN 90 mL/min (90-120)
[2019-05-28 11:56] LABS: GLUCOSE 141 mg/dL (74-106)
--- NOTE | 2019-05-28 14:10 | NUR ---
PT RECEIVED VIA STRETCHER FROM TWO WAY RADIO TECHNICIAN FOR RECOVERY. PT AWAKE, DENIES ANY PAIN OR DISCOMFORT. IV PATENT INFUSING VIA ORDERS. HR NSR RATE 82, BP 129/74, O2 SAT 94, PLACED ON 2L/NC. CALL LIGHT IN REACH.
--- NOTE | 2019-05-28 14:31 | NUR ---
PT RESTING COMFORTABLY, DENIES PAIN OR DISCOMFORT. HR SR 84, BP 129/74, 02 REMOVED PER PT REQUEST, SAT 94 ON ROOM AIR. CALL LIGHT IN REACH
--- NOTE | 2019-05-28 15:02 | NUR ---
PT SITTING UP, SANDWICH TRAY SERVED WITH WATER. PT DENIES HAVING ANY TROUBLE SWALLOWING. VSS. IV PATENT INFUSING VIA ORDERS.
--- NOTE | 2019-05-28 15:20 | NUR ---
DISCHARGE INSTRUCTIONS REVIEWED W PT, HE VERBALIZED UNDERSTANDING. IV REMOVED W CATH INTACT. MONITORS REMOVED AND PT UP TO DRESS FOR DISCHARGE
--- NOTE | 2019-05-28 15:25 | NUR ---
PT AMBULATED TO BR, VOIDING W/O DIFFICULITY.
--- NOTE | 2019-05-28 15:35 | NUR ---
PT DISCHARGED VIA WC TO CAB WITH ALL BELONGINGS.
--- NOTE | 2019-05-29 08:20 | TEE ---
PATIENT:LACIE ROSALES MEDICAL RECORD: [id number] LOCATION:D.CAT AGE OF PATIENT: 63 ADMISSION DATE: 05/28/19 SEX: M REFERRING PHYSICIAN: INTERPRETING PHYSICIAN: AYO HOPE MD TRANSESOPHAGEAL ECHOCARDIOGRAM Date: 05/28/19 NITHYA CHARGE Y INDICATIONS: ATRIAL FIB, ASSESS FOR CLOTS PREMEDICATIONS: PATIENT'S RESPONSE PROCEDURE DOPPLER MEASUREMENTS: LVIT LA PA RA LVOT RVOT Asc. Ao AV Gradient Peak AV Mean AV Area MV Gradient Peak MV Mean MV Area INTERPRETATION: Doppler: 2-D: COLOR FLOW DOPPLER NORMAL SALINE STUDY: MISCELLANOUS: DIAGNOSIS: PLAN: Advisory Application Developer:3 Dr. Lao Workplace Relations Adviser: Gerard GARCIA COMMENTS: DATE OF SERVICE: 05/28/2019 DESCRIPTION OF PROCEDURE: After general sedation via TIVA via anesthesia, transesophageal Omniplane probe was placed in the distal esophagus and the proximal stomach without difficulty. FINDINGS: As follows; LVH is present. LV internal dimensions are normal. Wall motion is normal. EF greater than 55%. The aortic valve is tricuspid. There is good valve excursion and trivial AI. Left atrium appears normal in TRANSESOPHAGEAL ECHOCARDIOGRAM REPORT [id number] LACIE ROSALES dimensions. Left atrial appendage is well visualized with good contractility via Doppler interrogation. Mitral valve is well visualized with good excursion. Mild MR. Right-sided chambers and RV internal dimensions appear normal. Right atrium is slightly dilated. [id number] TR. At the end of the procedure, transesophageal Omniplane probe was turned posteriorly and this showed minimal atherosclerotic debris in the descending aorta. TRANSINT:[id number] Voice Confirmation ID: [id number] DOCUMENT ID: [id number] at 0820 CC: [id number] DICTATION DATE: 05/28/19 1401 CHEMICAL OPERATIONS SPECIALIST: 05/28/19 1448 DEP CLI 05/28/19 [facility] [address] [place] [id number]
--- NOTE | 2019-05-29 08:20 | OP ---
PATIENT NAME: LACIE ROSALES MEDICAL RECORD: [id number] :51 LOCATION:D.CAT ADMISSION DATE: SURGEON: YAO HOPE MD DATE OF OPERATION: 05/28/2019 PROCEDURE: Cardioversion. SUMMARY OF PROCEDURE: After general sedation via TIVA via Anesthesia, single synchronized shock restoring slow atrial flutter to normal sinus rhythm. IMPRESSION: Successful cardioversion. COMPLICATIONS: None. TRANSINT:[id number] Voice Confirmation ID: [id number] DOCUMENT ID: [id number] AYO HOPE MD at 0820 CC: [id number] DICTATION DATE: 05/28/19 1402 PRODUCT DEVELOPMENT MANAGER: 05/28/19 1419 [facility] CLI 05/28/19 [place] [id number] [place] [address]
== END 2019-05-28 15:35 | disposition home or self-care (01) ==
LOC: D.CATH 11:07
PROVIDERS: ATTEND Internal Medicine Interventional Cardiology
DX: I48.91 Unspecified atrial fibrillation (principal); Z01.812 Encounter for preprocedural laboratory examination

== ENCOUNTER → 2019-07-04 10:10 | Outpatient (CLI) | payer MEDICARE ==
[2019-05-28 11:32] VITALS: BMI 34.3
[~2019-07-04 10:10] MED LIST changes: +BETAPACE 80 MG80 MG PO; +FUROSEMIDE40 MG PO; +XARELTO15 MG PO
== END | disposition home or self-care (01) ==
LOC: D.LAB 10:10
PROVIDERS: ATTEND Internal Medicine Gastroenterology
DX: K63.89 Other specified diseases of intestine (principal)

== ENCOUNTER → 2019-10-07 08:57 | Outpatient (CLI) | payer MEDICARE ==
[2019-05-28 11:32] VITALS: BMI 34.3
== END | disposition home or self-care (01) ==
LOC: D.LAB 08:57
PROVIDERS: ATTEND Internal Medicine Gastroenterology
DX: E55.9 Vitamin D deficiency, unspecified (principal)

== ENCOUNTER → 2019-10-22 14:12 | Outpatient (CLI) | payer MEDICARE ==
[2019-05-28 11:32] VITALS: BMI 34.3
[2019-10-22 14:54] LABS: BASOPHILS 0.6 % (0-2); EOSINOPHILS 3.4 % (0-7); HEMATOCRIT 45.9 % (42.0-54.0); HEMOGLOBIN 15.2 g/dL (13.5-17.5); IMMATURE GRANULOCYTES 1.8 % (0-5); MCH 29.5 pg (26.0-34.0); MCHC 33.1 g/dL (31.0-37.0); MCV 89.1 fL (80.0-100.0); MEAN PLATELET VOLUME 9.5 fL (7.4-10.4); MONOCYTES 10.4 % (2-11); NEUTROPHILS 66.8 % (40-80); PLATELET COUNT 250 10x3/uL (130-400); RBC 5.15 10x6/uL (4.20-6.10); RDW 13.9 % (11.5-14.5); WBC 9.1 10x3/uL (4.8-10.8)
[2019-10-22 16:10] LABS: ALBUMIN 3.6 g/dL (3.4-5.0); ALKALINE PHOSPHATASE 69 U/L (46-116); ALT (SGPT) 35 U/L (10-68); CALC OSMOLALITY 278 mosm/kg (275-300); CALCIUM 8.7 mg/dL (8.5-10.1); CARBON DIOXIDE 30.1 mmol/L (21.0-32.0); CHLORIDE - SERUM 103 mmol/L (98-107); CREATININE - SERUM 0.9 mg/dL (0.6-1.3); PROTEIN - SERUM 7.2 g/dL (6.4-8.2); SODIUM 140 mmol/L (136-145); UREA NITROGEN 12 mg/dL (7-18); eGFR NON AFRICAN AMERICAN 90 mL/min (90-120)
[2019-10-22 16:14] LABS: GLUCOSE 93 mg/dL (74-106)
[2019-10-22 16:35] LABS: ERYTHROCYTE SEDIMENTATION RATE 5 mm/hr (0-20)
== END | disposition home or self-care (01) ==
LOC: D.LAB 14:12
PROVIDERS: ATTEND Internal Medicine Gastroenterology
DX: K58.9 Irritable bowel syndrome, unspecified (principal); K92.2 Gastrointestinal hemorrhage, unspecified; K64.1 Second degree hemorrhoids; K50.90 Crohn's disease, unspecified, without complications; K92.1 Melena

== ENCOUNTER → 2020-01-23 11:33 | Outpatient (CLI) | payer MEDICARE ==
[2019-05-28 11:32] VITALS: BMI 34.3
== END | disposition home or self-care (01) ==
LOC: D.LAB 11:33
PROVIDERS: ATTEND Internal Medicine Gastroenterology
DX: E55.9 Vitamin D deficiency, unspecified (principal)

== ENCOUNTER 2020-01-31 01:19 | Inpatient (IN) | payer MEDICARE ==
[~2020-01-31] VITALS: Ht 185.4 cm; Wt 113.4 kg
[2020-01-31] MEDS ORDERED: NICOTINE P1 PATCH .3 TRANSDERM (01:33)
[2020-01-31 01:34] LABS: HEMATOCRIT 52.8 % (42.0-54.0); HEMOGLOBIN 17.1 g/dL (13.5-17.5); MCH 29.7 pg (26.0-34.0); MCHC 32.4 g/dL (31.0-37.0); MCV 91.8 fL (80.0-100.0); MEAN PLATELET VOLUME 9.4 fL (7.4-10.4); PLATELET COUNT 331 10x3/uL (130-400); RBC 5.75 10x6/uL (4.20-6.10); RDW 13.2 % (11.5-14.5); WBC 24.8 10x3/uL (4.8-10.8)
[2020-01-31 01:43] LABS: CALC OSMOLALITY 275 mosm/kg (275-300); CALCIUM 9.4 mg/dL (8.5-10.1); CARBON DIOXIDE 32.2 mmol/L (21.0-32.0); CHLORIDE - SERUM 97 mmol/L (98-107); POTASSIUM - SERUM 3.6 mmol/L (3.5-5.1); SODIUM 137 mmol/L (136-145); UREA NITROGEN 11 mg/dL (7-18); eGFR NON AFRICAN AMERICAN 79 mL/min (90-120)
[2020-01-31 01:44] LABS: GLUCOSE 144 mg/dL (74-106)
[2020-01-31 01:46] VITALS: BP 149/99
[2020-01-31 01:58] LABS: LYMPHOCYTES 4 % (15-50); MONOCYTES 6 % (2-11); NEUTROPHILS 87 % (40-80); PLATELET ESTIMATE NORMAL
[2020-01-31 02:00] LABS: ALKALINE PHOSPHATASE 76 U/L (30-120); ALT (SGPT) 31 U/L (10-68); BILIRUBIN - TOTAL 0.82 mg/dL (0.2-1.3); C-REACTIVE PROTEIN 1.1 mg/dL (0.0-0.9); FERRITIN 161 ng/mL (3-244); PRO BNP 331 pg/mL (0-125); PROTEIN - SERUM 8.2 g/dL (6.4-8.2)
[2020-01-31 02:01] LABS: TROPONIN-I < 0.017 ng/mL (0.000-0.060)
--- NOTE | 2020-01-31 03:15 | NUR ---
ROCEPHIN INFUSION COMPLETE AT THIS TIME.
--- NOTE | 2020-01-31 03:38 | NUR ---
ZITHROMAX INFUSING ON TRANSFER
[2020-01-31 04:00] VITALS: BP 127/80
--- NOTE | 2020-01-31 04:15 | NUR ---
WAS NOTIFIED BY THE HOUSE SUPERVISER THAT THIS PT IS AN OVER FLOW PT. PT ARRIVIED IN THE UNIT. PT PUT IN COVID-19 PRECAUTIONS. 2L VIA NC. VSS. PT IN A PLESEANT MOOD. CALL LIGHT IN REACH. WILL CONT POC.
[2020-01-31 05:00] VITALS: BMI 33.0
--- NOTE | 2020-01-31 07:34 | NUR ---
PT RECEIVED TO ROOM FROM ICU VIA WHEELCHAIR. ISOLATION FOR POTENTIAL COVID-19. PT WITH COUGH, OXYGEN AT 2 LITERS. HOME MED LIST REVIEWED.
[2020-01-31 12:06] VITALS: BMI 32.9
[2020-01-31 13:16] VITALS: Ht 185.4 cm; Wt 113.4 kg
[2020-01-31 14:10] VITALS: BP 120/62
--- NOTE | 2020-01-31 15:30 | MORECARE ---
CASE MANAGEMENT DISCHARGE SUMMARY PATIENT: LACIE ROSALES UNIT: [id number] ADM DATE: 01/31/20 AGE: 64 : 51 SEX: M ROOM/BED: D.8214 AUTHOR: QIANDOC PHYSICIAN: REFERRING PHYSICIAN: BERNARDO HERNDON MD DATE OF SERVICE: 01/31/20 Discharge Plan Patient Name: LACIE ROSALES Facility: [facility]:[place] : 1955 Planned Disposition: Home Anticipated Discharge Date: Discharge Date: Expected LOS: Initial Reviewer: [email or web address] Initial Review Date: 01/31/2020 Generated: 01/31/20 4:30 pm Comments DCP- Discharge Planning Updated by [email or web address]: Pérez Davis on 01/31/20 2:[address] Patient Name: LACIE ROSALES Admission Status: ER Accout number: [id number] Admission Date: 01-31-2020 : 1955 Admission Diagnosis: Attending: BERNARDO HERNDON Current LOS: 1 Anticipated DC Date: Planned Disposition: Home Primary Insurance: MEDICARE A & B Discharge Planning Comments: CM MET WITH PT IN ROOM TO DISCUSS DISCHARGE PLANNING AND NEEDS. PT REPORTS LIVING AT HOME INDEPENDENTLY AND ALONE. PT HAS NO MEDICAL EQUIPMENT AND NO OUTSIDE SERVICES ASSISTING IN THE HOME. CM DISCUSSED AVAILABILITY OF HOME HEALTH, REHAB SERVICES AND MEDICAL EQUIPMENT. PT DENIES DISCHARGE NEEDS, REPORTS HIS FRIEND WILL PICK HIM UP FOR DISCHARGE HOME. PT PLANS TO DISCHARGE HOME ALONE AND HAS NO ANTICIPATED DISCHARGE NEEDS. FRIEND TO TRANSPORT HOME. CM TO FOLLOW AND ASSIST IF NEEDED. Photographic Intelligence Officer: Pérez Davis DCPIA - Discharge Planning Initial Assessment Updated by [email or web address]: Pérez Davis on 01/31/20 3:24 pm * Is the patient Alert and Oriented? Yes * How many steps to enter\exit or inside your home? * PCP SHARYN MARY * Pharmacy [facility] * Preadmission Environment Home Alone * ADLs Independent * Equipment None * Other Equipment NO MEDICAL EQUIPMENT PROVIDER PREFERENCE * List name and contact numbers for known caregivers / representatives who currently or will assist patient after discharge: CECELIA SRINIVAS, FRIEND, * Verbal permission to speak to the caregivers and representatives has been obtained from the patient. N/A * Community resources currently utilized None * Please name any agencies selected above. NONE * Additional services required to return to the preadmission environment? No * Can the patient safely return to the preadmission environment? Yes * Has this patient been hospitalized within the prior 30 days at any hospital? No Patient Name: LACIE ROSALES Page [id number] at 1530 All edits/amendments must be made on the electronic document DICTATION DATE: 01/31/201529 CONVERTIBLE SOFA BEDSPRING TESTER: LASHELL 01/31/20 153 RPT#: [id number] DC DATE: STATUS: ADM IN [facility] [address] [place] [address] END OF REPORT
[2020-01-31 22:30] VITALS: BP 132/76
--- NOTE | 2020-02-01 07:23 | NUR ---
PT AWAKE AND ORIENTED, SITTING ON SIDE OF BED. NO COMPLAINTS OR CONCERNS STATED AT THIS TIME. BREATHS EVEN/REGULAR AND UNLABORED. CL IN REACH, NO VISITORS AT BEDSIDE.
[2020-02-01] MEDS ORDERED: AZITHROMYCIN500 MG PO (11:55)
[2020-02-01] MEDS ORDERED: OMNICEF300 MG PO (11:56)
[2020-02-01 13:02] LABS: BASOPHILS 0.1 % (0-2); EOSINOPHILS 1.5 % (0-7); HEMATOCRIT 47.8 % (42.0-54.0); HEMOGLOBIN 15.4 g/dL (13.5-17.5); IMMATURE GRANULOCYTES 0.9 % (0-5); LYMPHOCYTES 9.5 % (15-50); MCH 29.7 pg (26.0-34.0); MCHC 32.2 g/dL (31.0-37.0); MCV 92.1 fL (80.0-100.0); MEAN PLATELET VOLUME 9.6 fL (7.4-10.4); MONOCYTES 7.8 % (2-11); NEUTROPHILS 80.2 % (40-80); PLATELET COUNT 301 10x3/uL (130-400); RBC 5.19 10x6/uL (4.20-6.10); RDW 13.4 % (11.5-14.5)
[2020-02-01 13:24] LABS: WBC 12.8 10x3/uL (4.8-10.8)
--- NOTE | 2020-02-01 14:46 | NUR ---
PT ALERT AND ORIENTED, ESCORTED OUT VIA WHEELCHIAIR TO POV.
--- NOTE | 2020-02-02 17:43 | EC ---
PATIENT:LACIE ROSALES DATE OF SERVICE: 01/31/20 SEX: M MEDICAL RECORD: [id number] DATE OF : [birth year] LOCATION:D.M2 D.212 AGE OF PATIENT: 64 ADMISSION DATE: 01/31/20 REFERRING PHYSICIAN: INTERPRETING PHYSICIAN: TERESO MCKENNA MD ECHOCARDIOGRAM REPORT ECHO CHARGES 4 ECHO COMPLETE Date: 01/31/20 CLINICAL DIAGNOSIS: CHF ECHOCARDIOGRAPHIC MEASUREMENTS (adult normal given) AC root (d.<3.7cm) 3.5 cm LV Septum d (<1.2 cm> 0.9 cm Valve Excursion 2.0 cm LV Septum (systole) 1.0 cm Left Atria (s.<4.0cm> 3.8 cm LVPW d(<1.2cm) 1.1 cm RV (d.<2.3cm) 3.1 cm LVPW (sytole) 1.2 cm LV diastole(<5.6CM) 6.6 cm MV E-F(>70mm/sec) cm LV systole 5.8 cm LVOT Diameter 2.3 cm MV exc.(>10mm) cm Est.ejection fraction (50-75%) % DOPPLER: LVIT cm/sec A 53 cm/sec E 51 cm/sec LA cm/sec RVSP 22.9 mmHg LVOT 91 cm/sec AOP1/2T m/s Asc. Ao 134 cm/sec RVOT 65 cm/sec RA cm/sec PA 78 cm/sec AV Gradient Peak 7.2 mmHg AV Mean 4.0 mmHg AV Area 2.8 cm MV Gradient Peak 1.3 mmHg MV Mean 0.8 mmHg MV Area cm COMMENTS: Utility Division Project Manager: Gerard GARCIA Janitorial Account Manager: 4 Dr. Mckenna TAPE# PACS Pericardial Effusion N DATE OF SERVICE: 01/31/2020 PROCEDURE: Echocardiogram. FINDINGS: Left ventricle, ejection fraction is 55% to 60%. Technically difficult study. Normal size and normal function. Aortic valve appears to be normal. Mitral valve is not well visualized, but no obvious significant regurgitation. Tricuspid valve appears to be structurally normal. The estimated right ECHOCARDIOGRAM REPORT [id number] LACIE ROSALES ventricular systolic pressure is 22.9 mmHg. Right ventricle is mildly dilated with normal function. Right atrium is normal size and function. Pulmonic valve is grossly normal. IMPRESSION: Overall, normal echocardiogram with normal LV systolic function. TRANSINT:[id number] Voice Confirmation ID: [id number] DOCUMENT ID: [id number] TERESO MCKENNA MD at 1743 CC: [id number] DICTATION DATE: 02/02/20 1112 STUDY ASSISTANT: 02/02/20 1328 DIS IN 02/01/20 [place] [id number] [place] [address]
--- NOTE | 2020-02-03 08:58 | MORECARE ---
CASE MANAGEMENT DISCHARGE SUMMARY PATIENT: LACIE ROSALES UNIT: [id number] ADM DATE: 01/31/20 AGE: 64 : [birth year] SEX: M ROOM/BED: D.0088 AUTHOR: SARINA LAUGHLIN PHYSICIAN: REFERRING PHYSICIAN: BERNARDO HERNDON MD DATE OF SERVICE: 02/03/20 Discharge Plan Patient Name: LACIE ROSALES Facility: [facility]:[place] : 1955 Planned Disposition: Home Anticipated Discharge Date: Discharge Date: 02/01/2020 Expected LOS: Initial Reviewer: [email or web address] Initial Review Date: 01/31/2020 Generated: 02/03/20 9:57 am Comments DCP- Discharge Planning Updated by [email or web address]: Laura Squires on 02/03/20 7:[address] Patient Name: LACIE ROSALES Encounter No: [id number] : 1955 Primary Insurance: MEDICARE A & B Anticipated DC Date: Planned Disposition: Home External Planned Provider: : Late entry Discharge Planning Comments: CM met with patient to dc discharge needs. Pt reports he is independent, and denies any needs. DC imm provided. Patient verbalized understanding. Original left with patient. Copy placed on chart. Laura Squires DCP- Discharge Planning Updated by [email or web address]: Pérez Davis on 01/31/20 2:[address] Patient Name: LACIE ROSALES Admission Status: ER Accout number: [id number] Admission Date: 01-31-2020 : 1955 Admission Diagnosis: Attending: BERNARDO HERNDON Current LOS: 1 Anticipated DC Date: Planned Disposition: Home Primary Insurance: MEDICARE A & B Discharge Planning Comments: CM MET WITH PT IN ROOM TO DISCUSS DISCHARGE PLANNING AND NEEDS. PT REPORTS LIVING AT HOME INDEPENDENTLY AND ALONE. PT HAS NO MEDICAL EQUIPMENT AND NO OUTSIDE SERVICES ASSISTING IN THE HOME. CM DISCUSSED AVAILABILITY OF HOME HEALTH, REHAB SERVICES AND MEDICAL EQUIPMENT. PT DENIES DISCHARGE NEEDS, REPORTS HIS FRIEND WILL PICK HIM UP FOR DISCHARGE HOME. PT PLANS TO DISCHARGE HOME ALONE AND HAS NO ANTICIPATED DISCHARGE NEEDS. FRIEND TO TRANSPORT HOME. CM TO FOLLOW AND ASSIST IF NEEDED. Cartridge Belt Puncher: Pérez Davis DCPIA - Discharge Planning Initial Assessment Updated by [email or web address]: Pérez Tejadawell on 01/31/20 3:24 pm * Is the patient Alert and Oriented? Yes * How many steps to enter\exit or inside your home? * PCP SHARYN MARY * [facility]acy [facility] * Preadmission Environment Home Alone * ADLs Independent * Equipment None * Other Equipment NO MEDICAL EQUIPMENT PROVIDER PREFERENCE * List name and contact numbers for known caregivers / representatives who currently or will assist patient after discharge: CECELIA ESPINO, FRIEND, * Verbal permission to speak to the caregivers and representatives has been obtained from the patient. N/A * Community resources currently utilized None * Please name any agencies selected above. NONE * Additional services required to return to the preadmission environment? No * Can the patient safely return to the preadmission environment? Yes * Has this patient been hospitalized within the prior 30 days at any hospital? No Coverage Notice Reviewer: [email or web address] Paty Squires Notice Issued Date-Time: 02/01/2020 14:30 Notice Type: IM Discharge Notice Notice Delivered To: Patient Relationship to Patient: Slubber Hand Name: Delivery Method: HAND - Hand Delivered [place] Days: Prior Verbal Notification: Recipient Understood Notice: Yes Recipient Signature: Yes Med Rec Note Co-signed by Attending: Coverage Notice Comment: dcc imm signed and placed on chart. Last DP export: 01/31/20 2:30 p Patient Name: LACIE ROSALES Page [phone] at 0858 All edits/amendments must be made on the electronic document DICTATION DATE: 02/03/20 0857 ACROBATIC RIGGER: LASHELL 02/03/20 0857 RPT#: [id number] DC DATE:02/01/20 STATUS: DIS IN [facility] [address] [place] [address] END OF REPORT
== END 2020-02-01 14:49 | disposition home or self-care (01) | DRG 189 ==
LOC: D.ER 01:19 → D.ICU 02:24 → D.M2 02:24
PROVIDERS: Emergency Medicine; Internal Medicine Pulmonary Disease; ADMIT Internal Medicine Nephrology; ATTEND Internal Medicine Nephrology
DX: J96.01 Acute respiratory failure with hypoxia (principal); K50.90 Crohn's disease, unspecified, without complications; J20.9 Acute bronchitis, unspecified; I25.10 Atherosclerotic heart disease of native coronary artery without angina pectoris; K21.9 Gastro-esophageal reflux disease without esophagitis; I48.91 Unspecified atrial fibrillation; E66.9 Obesity, unspecified; Z68.33 Body mass index [BMI] 33.0-33.9, adult; J43.9 Emphysema, unspecified; Z20.828 Contact with and (suspected) exposure to other viral communicable diseases

== ENCOUNTER → 2020-05-18 10:23 | Outpatient (CLI) | payer MEDICARE ==
[2020-01-31 13:16] VITALS: BMI 32.9
[~2020-05-18 10:23] MED LIST changes: +AZITHROMYCIN500 MG PO; +NICOTINE P1 PATCH .3 TRANSDERM; +OMNICEF300 MG PO
[2020-05-18 11:07] LABS: HEMATOCRIT 51.2 % (42.0-54.0); HEMOGLOBIN 16.6 g/dL (13.5-17.5); LYMPHOCYTES 15.2 % (15-50); MCH 29.3 pg (26.0-34.0); MCHC 32.4 g/dL (31.0-37.0); MCV 90.5 fL (80.0-100.0); MEAN PLATELET VOLUME 9.4 fL (7.4-10.4); NEUTROPHILS 77.5 % (40-80); PLATELET COUNT 242 10x3/uL (130-400); RBC 5.66 10x6/uL (4.20-6.10); RDW 13.4 % (11.5-14.5); WBC 8.1 10x3/uL (4.8-10.8)
[2020-05-18 11:21] LABS: ALBUMIN 3.6 g/dL (3.4-5.0); ANION GAP 6.4 mmol/L (8-16); BILIRUBIN - TOTAL 0.55 mg/dL (0.2-1.3); CARBON DIOXIDE 35.3 mmol/L (21.0-32.0); CREATININE - SERUM 1.1 mg/dL (0.6-1.3); POTASSIUM - SERUM 3.7 mmol/L (3.5-5.1); PROTEIN - SERUM 7.4 g/dL (6.4-8.2)
[2020-05-18 14:04] LABS: ERYTHROCYTE SEDIMENTATION RATE 3 mm/hr (0-20)
== END | disposition home or self-care (01) ==
LOC: D.LAB 10:23
PROVIDERS: ATTEND Internal Medicine Gastroenterology
DX: K63.89 Other specified diseases of intestine (principal)

== ENCOUNTER → 2020-08-17 13:23 | Outpatient (CLI) | payer MEDICARE ==
[2020-01-31 13:16] VITALS: BMI 32.9
[2020-08-17 13:50] LABS: HEMATOCRIT 49.7 % (42.0-54.0); HEMOGLOBIN 16.2 g/dL (13.5-17.5); MCH 29.1 pg (26.0-34.0); MCHC 32.6 g/dL (31.0-37.0); MCV 89.2 fL (80.0-100.0); MEAN PLATELET VOLUME 10.1 fL (7.4-10.4); PLATELET COUNT 225 10x3/uL (130-400); RBC 5.57 10x6/uL (4.20-6.10); RDW 13.3 % (11.5-14.5); WBC 9.3 10x3/uL (4.8-10.8)
[2020-08-17 14:23] LABS: ALBUMIN 3.6 g/dL (3.4-5.0); ALKALINE PHOSPHATASE 78 U/L (30-120); ALT (SGPT) 32 U/L (10-68); BILIRUBIN - TOTAL 0.63 mg/dL (0.2-1.3); CALC OSMOLALITY 269 mosm/kg (275-300); CALCIUM 9.5 mg/dL (8.5-10.1); CARBON DIOXIDE 34.4 mmol/L (21.0-32.0); CHLORIDE - SERUM 98 mmol/L (98-107); GLUCOSE 98 mg/dL (74-106); POTASSIUM - SERUM 4.3 mmol/L (3.5-5.1); SODIUM 135 mmol/L (136-145); UREA NITROGEN 12 mg/dL (7-18); eGFR NON AFRICAN AMERICAN 79 mL/min (90-120)
[2020-08-17 14:51] LABS: EOSINOPHILS 4 % (0-7); LYMPHOCYTES 18 % (15-50); MONOCYTES 13 % (2-11); NEUTROPHILS 60 % (40-80); PLATELET ESTIMATE NORMAL
[2020-08-17 15:48] LABS: ERYTHROCYTE SEDIMENTATION RATE 6 mm/hr (0-20)
== END | disposition home or self-care (01) ==
LOC: D.LAB 13:23
PROVIDERS: ATTEND Internal Medicine Gastroenterology
DX: K58.8 Other irritable bowel syndrome (principal)

== ENCOUNTER → 2021-02-12 14:12 | Outpatient (CLI) | payer MEDICARE ==
[2020-01-31 13:16] VITALS: BMI 32.9
[2021-02-12 14:38] LABS: BASOPHILS 0.4 % (0-2); EOSINOPHILS 2.8 % (0-7); HEMATOCRIT 44.4 % (42.0-54.0); HEMOGLOBIN 14.1 g/dL (13.5-17.5); IMMATURE GRANULOCYTES 1.8 % (0-5); LYMPHOCYTE ABS# 0.82 10x3/uL (1.32-3.57); LYMPHOCYTES 6.8 % (15-50); MCH 27.2 pg (26.0-34.0); MCHC 31.8 g/dL (31.0-37.0); MCV 85.7 fL (80.0-100.0); MEAN PLATELET VOLUME 9.4 fL (7.4-10.4); MONOCYTES 8.9 % (2-11); NEUTROPHIL ABS# 9.59 10x3/uL (1.78-5.38); NEUTROPHILS 79.3 % (40-80); RBC 5.18 10x6/uL (4.20-6.10); RDW 14.2 % (11.5-14.5); WBC 12.1 10x3/uL (4.8-10.8)
[2021-02-12 14:43] LABS: PLATELET COUNT 367 10x3/uL (130-400)
[2021-02-12 15:20] LABS: ALBUMIN 3.3 g/dL (3.4-5.0); ALKALINE PHOSPHATASE 70 U/L (30-120); ALT (SGPT) 23 U/L (10-68); BILIRUBIN - TOTAL 0.36 mg/dL (0.2-1.3); CALC OSMOLALITY 274 mosm/kg (275-300); CARBON DIOXIDE 35.8 mmol/L (21.0-32.0); CHLORIDE - SERUM 99 mmol/L (98-107); CREATININE - SERUM 0.9 mg/dL (0.6-1.3); GLUCOSE 102 mg/dL (74-106); POTASSIUM - SERUM 3.8 mmol/L (3.5-5.1); PROTEIN - SERUM 7.3 g/dL (6.4-8.2); SODIUM 138 mmol/L (136-145); UREA NITROGEN 9 mg/dL (7-18); eGFR NON AFRICAN AMERICAN 89 mL/min (90-120)
[2021-02-12 15:49] LABS: ERYTHROCYTE SEDIMENTATION RATE 33 mm/hr (0-20)
== END | disposition home or self-care (01) ==
LOC: D.LAB 14:12
PROVIDERS: ATTEND Internal Medicine Gastroenterology
DX: K50.90 Crohn's disease, unspecified, without complications (principal); E50.9 Vitamin A deficiency, unspecified